=== PATIENT | female | born 1950 | race Caucasian/White ===

== ENCOUNTER 2016-09-19 06:45 | Day surgery (SDC) | payer BC ==
--- NOTE | ~2016-09-19 | EGD ---
EGD REPORT [facility] [address] [address] NAME: TAWNY MART : [birth year] STATUS : REG [facility]#: [id number] AGE: 66 ADM/REG DATE : 09/19/16 MR#: [id number] REPORT SERV DATE: 09/19/16 DICTATED BY: UZMA JORDAN DATE: 09/19/16 REPORT STATUS : Draft TRANSCRIBED BY: [employer] DATE: 09/19/16 Endoscopy Center Patient Name: Tawny Mart Date of : 1950 Attending MD: UZMA JORDAN MD Procedure Date No Time: 09/19/2016 Procedure: Upper GI endoscopy Indications: Dysphagia, Heartburn, Suspected esophageal reflux Referring MD: DONY FORTUNE MD Medicines: as per anesthesia Complications: No immediate complications. Procedure: Pre-Anesthesia Assessment: - ASA Grade Assessment: III - A patient with severe systemic disease. After obtaining informed consent, the endoscope was passed under direct vision. Throughout the procedure, the patient's blood pressure, pulse, and oxygen saturations were monitored continuously. The GIF [id number] was introduced through the mouth, and advanced to the third part of duodenum. The upper GI endoscopy was accomplished without difficulty. The patient tolerated the procedure. Findings: Patchy candidiasis was found in the entire esophagus. brushings done The scope was withdrawn. Dilation was performed with a Up dilator with no resistance at 44 Fr. A few sessile polyps were found in the gastric body. Biopsies were taken with a cold forceps for histology. The cardia and gastric fundus were normal on retroflexion. The examined duodenum was normal. Impression: - Monilial esophagitis. Dilated. - A few gastric polyps. Biopsied. - Normal examined duodenum. Recommendation: - Await pathology results. Procedure Code(s): --- Professional --- 36243, Esophagogastroduodenoscopy, flexible, transoral; with biopsy, single or multiple 58726, Dilation of esophagus, by unguided sound or bougie, single or multiple passes Diagnosis Code(s): --- Professional --- EGD REPORT [address] [place]. [address] NAME: TAWNY MART : [birth year] STATUS : REG [facility] [place]#: [id number] AGE: 66 ADM/REG DATE : 09/19/16 MR#: [id number] REPORT SERV DATE: 09/19/16 DICTATED BY: UZMA JORDAN. DATE: 09/19/16 REPORT STATUS : Draft TRANSCRIBED BY: [employer] DATE: 09/19/16 B37.81, Candidal esophagitis K31.7, Polyp of stomach and duodenum R13.10, Dysphagia, unspecified R12, Heartburn CPT copyright 2013 [employer]. All rights reserved. The codes documented in this report are preliminary and upon recreation assistant review may be revised to meet current compliance requirements. UZMA JORDAN MD 09/19/2016 8:24 AM This report has been signed electronically. Number of Addenda: 0 Note Initiated On: 09/19/2016 6:59 AM Scope Withdrawal Time 0 hours 0 minutes 0 seconds [id number] [place] Min [id number]
--- NOTE | ~2016-09-19 | EGD ---
EGD REPORT [facility] [address] [place] [address] NAME: TAWNY MART : [birth year] STATUS : REG [facility]#: [id number] AGE: 66 ADM/REG DATE : 09/19/16 MR#: [id number] REPORT SERV DATE: 09/19/16 DICTATED BY: UZMA JORDAN DATE: 09/19/16 REPORT STATUS : Draft TRANSCRIBED BY: [employer] DATE: 09/19/16 Endoscopy Center Patient Name: Tawny Mart Date of : 1950 Attending MD: UZMA JORDAN MD Procedure Date No Time: 09/19/2016 Procedure: Colonoscopy Indications: Personal history of Crohn's disease Referring MD: DONY FORTUNE MD Medicines: as per anesthesia Complications: No immediate complications. Procedure: Pre-Anesthesia Assessment: - ASA Grade Assessment: III - A patient with severe systemic disease. After I obtained informed consent, the scope was passed under direct vision. Throughout the procedure, the patient's blood pressure, pulse, and oxygen saturations were monitored continuously. The PCF [id number] was introduced through the anus and advanced to the cecum, identified by appendiceal orifice and ileocecal valve. The colonoscopy was performed without difficulty. The patient tolerated the procedure. The quality of the bowel preparation was adequate to identify polyps. Findings: The perianal and digital rectal examinations were normal. Patchy melanosis was found in the entire colon. Internal hemorrhoids were found during endoscopy and were mild. Impression: - Melanosis in the colon. - Internal hemorrhoids. Recommendation: - Repeat colonoscopy in 5 years for surveillance. Procedure Code(s): --- Professional --- 19799, Colonoscopy, flexible, proximal to splenic flexure; diagnostic, with or without collection of specimen(s) by brushing or washing, with or without colon decompression (separate procedure) Diagnosis Code(s): --- Professional --- K63.89, Other specified diseases of intestine K64.8, Other hemorrhoids Z87.19, Personal history of other diseases of the digestive system [address]GD REPORT [address] [place] [address] NAME: TAWNY MART : [birth year] STATUS : REG [facility]#: [id number] AGE: 66 ADM/REG DATE : 09/19/16 MR#: [id number] REPORT SERV DATE: 09/19/16 DICTATED BY: UZMA JORDAN. DATE: 09/19/16 REPORT STATUS : Draft TRANSCRIBED BY: [employer] DATE: 09/19/16 CPT copyright 2013 [employer]. All rights reserved. The codes documented in this report are preliminary and upon manager meat review may be revised to meet current compliance requirements. UZMA JORDAN MD 09/19/2016 8:49 AM This report has been signed electronically. Number of Addenda: 0 Note Initiated On: 09/19/2016 6:58 AM Scope Withdrawal Time 0 hours 9 minutes [address] [place], [place] [address] [address]
[~2016-09-19 06:45] MED LIST: AFRIN15 NAS; ASA5GR PO; ASAB PO; BENICAR20 PO; BUSPAR10 PO; CELEBREX2 PO; CRESTOR10 PO; CRESTOR5 MG PO; FOSAMAX70 MG PO; LOP25 PO; NASACORTAQ NAS; NEXIUM40 PO; NORCO1 TA1 PO; NORV5 PO; NUCYNTA75 MG PO; PLAQ200B PO; PVC V; REQUIP25 PO; SENECOT PO; SENTAB PO; TOPXL25 PO; TRAZ50 PO; ULTRAM50 PO; VAGIFEM; VAGIFEM10 MCG V; VITAMIN B-121000 MC1 SL; VITAMIN D31000 UNIT PO; X5 PO; ZETIA PO; ZOL50 PO; [UNRECOGNIZED DRUG - OTHER]
== END 2016-09-19 23:59 | disposition home or self-care (01) ==
LOC: DMU 06:45
PROVIDERS: Internal Medicine Gastroenterology
PROC: 0DB68ZX Excision of Stomach, Via Natural or Artificial Opening Endoscopic, Diagnostic (ICD-10-PCS; principal; 2016-09-19 08:00)
PROC: 0D757ZZ Dilation of Esophagus, Via Natural or Artificial Opening (ICD-10-PCS; 2016-09-19 08:00)
PROC: 0DJD8ZZ Inspection of Lower Intestinal Tract, Via Natural or Artificial Opening Endoscopic (ICD-10-PCS; 2016-09-19 08:00)
DX: K31.7 Polyp of stomach and duodenum (principal); B37.81 Candidal esophagitis; R13.10 Dysphagia, unspecified; R12 Heartburn; K63.89 Other specified diseases of intestine; K64.8 Other hemorrhoids; I25.10 Atherosclerotic heart disease of native coronary artery without angina pectoris; I10 Essential (primary) hypertension; K50.90 Crohn's disease, unspecified, without complications; Z87.19 Personal history of other diseases of the digestive system; Z87.891 Personal history of nicotine dependence; Z79.899 Other long term (current) drug therapy; Z79.82 Long term (current) use of aspirin; Z79.1 Long term (current) use of non-steroidal anti-inflammatories (NSAID); Z88.0 Allergy status to penicillin; Z88.2 Allergy status to sulfonamides; Z88.8 Allergy status to other drugs, medicaments and biological substances
CPT/HCPCS: 87210; 88305